=== PATIENT | female | born 1950 | race Two or more races ===

== ENCOUNTER 2023-10-11 16:08 | Outpatient (REF) | payer MEDICARE, MEDICAID, SELFPAY ==
[2023-10-11 18:22] LABS: Phenytoin Dilantin 13.2 ug/mL (10.0-20.0)
[2023-10-15 02:23] LABS: Levetiracetam Keppra 22.1 mcg/mL (6.0-46.0)
== END 2023-10-11 16:09 | disposition home or self-care (01) ==
LOC: HO.LAB 16:08
PROVIDERS: PCP Physician Assistant; Visit Provider Psychiatry & Neurology Neurology
DX: G40.909 Epilepsy, unspecified, not intractable, without status epilepticus (principal)
CPT/HCPCS: 36415; 80177; 80185

== ENCOUNTER 2024-06-18 15:28 | Outpatient (REF) | payer MEDICARE, MEDICAID, SELFPAY ==
[2024-06-18 16:44] LABS: Phenytoin Dilantin 13.4 ug/mL (10.0-20.0)
[2024-06-18 17:06] LABS: Thyroid Stimulating Hormone 0.93 uIU/mL (0.32-4.0)
--- OUTSIDE RECORDS SUMMARY | 2024-06-18 18:25 | XMS_ITS | Clinical Summary ---
Author Organization [facility] Address [address] [place] [address] Care Team Providers Care Classroom Instructional Aide Name Role Phone Meri Mondragon PA-C Primary Care Provider + [phone] Source Comments PLEASE NOTE, if this patient is a minor, it may be UNLAWFUL to discuss sensitive information that is contained in these records (such as FAMILY PLANNING, MENTAL HEALTH or SUBSTANCE ABUSE) with the minor patient's parent or other person without the patient's specific authorization.[facility] Allergies No known active allergies Medications spacerIndicatio ns:Wheeze Use prn for wheezing 786.07 with Mdi. 1 Inhaler 1 014 Active phenytoin (DILANTIN) 100 mg ER capsuleIndicati ons:tonic-cloni c epilepsy Take 100 mg by mouth 2 (two) times daily. Indications: Tonic-Clonic Epilepsy Active nebulizer accessoriesIndi cations:COPD, mild (HCC-CMS) Pt with COPD, Dx: J44.9 Lifetime need. Use every 6 hours as needed for SOB or wheeze. 1 Device 018 Active nebulizer accessoriesIndi cations:COPD, mild (HCC-CMS) Use to administer nebulizer medications. Dx: J44.9 LOS: 99 1 Device 019 Active nebulizer and compressorIndic ations:COPD, mild (HCC-CMS) Use to administer nebulizer medications. Dx: J44.9 LOS: 99 1 Each 019 Active blood pressure monitorIndicati ons:Essential hypertension Use to check blood pressure daily and as needed. Dx: I10 Meds: HCTZ, irbesartan Current BP monitor is malfunctioning; only shows one number. 1 Kit 020 Active miscellaneous medical supply miscIndications :Carpal tunnel syndrome of left wrist,Numbness and tingling in left hand Left hand/wrist splint. Wear nightly and throughout day as needed. Dx: G56.02 LOS: 11 1 Each 020 Active gabapentin (NEURONTIN) 300 mg capsule TAKE ONE CAPSULE BY MOUTH EVERY NIGHT AT BEDTIME DIRECTED . INCREASE BY 1 CAPSULE EVERY OTHER DAY UP TO 2 CAPSULES THREE TIMES DAILY D 021 Active albuterol (PROVENTIL) 2.5 mg /3 mL (0.083 %) nebulizer solutionIndicat ions:COPD, mild (HCC-CMS) Take 3 mL by nebulization every 6 (six) hours as needed for wheezing 90 Each 5 023 Active cholecalciferol (VITAMIN D-3) 50 mcg (2,000 unit) capsuleIndicati ons:Osteoporosi s without current pathological fracture, unspecified osteoporosis type Take 1 Capsule by mouth once daily 90 Capsule 1 023 Active albuterol HFA 90 mcg/actuation inhalerIndicati ons:Chronic obstructive pulmonary disease, unspecified COPD type (HCC-CMS) Inhale 2 Puffs into the lungs every 4 (four) hours as needed for shortness of breath or wheezing 18 g 3 024 Active irbesartan (AVAPRO) 300 mg tabletIndicatio ns:Essential hypertension TAKE 1 TABLET BY MOUTH EVERY NIGHT AT BEDTIME 90 Tablet 1 024 Active levETIRAcetam (KEPPRA) 1,000 mg tablet Take 1,000 mg by mouth 2 (two) times daily Authorized by: LAURA FAY 024 Active amLODIPine (NORVASC) 2.5 mg tabletIndicatio ns:Essential hypertension TAKE 1 TABLET BY MOUTH EVERY DAY 90 Tablet 1 024 Active chlorthalidone (HYGROTEN) 25 mg tabletIndicatio ns:Essential hypertension TAKE 1 TABLET BY MOUTH EVERY MORNING 90 Tablet 1 025 Active atorvastatin (LIPITOR) 10 mg tabletIndicatio ns:Dyslipidemia TAKE 1 TABLET BY MOUTH EVERY DAY 90 Tablet 025 Active fluticasone furoate-vilante roL (BREO ELLIPTA) 200-25 mcg/doseIndicat ions:Chronic obstructive pulmonary disease, unspecified COPD type (HCC-CMS) Inhale 1 Puff into the lungs daily 30 Each 3 025 Active calcium carbonate 600 mg calcium (1,500 mg) tabletIndicatio ns:Osteoporosis without current pathological fracture, unspecified osteoporosis type TAKE 1 TABLET BY MOUTH EVERY DAY 90 Tablet 1 025 Active montelukast (SINGULAIR) 10 mg tabletIndicatio ns:COPD, mild (HCC-CMS) TAKE 1 TABLET BY MOUTH EVERY NIGHT AT BEDTIME 90 Tablet 025 Active terbinafine (LAMISIL) 250 mg tabletIndicatio ns:Onychomycosi s Take 1 Tablet by mouth once daily 42 Tablet 025 Active calcium carbonate 600 mg calcium (1,500 mg) tabletIndicatio ns:Osteoporosis without current pathological fracture, unspecified osteoporosis type TAKE 1 TABLET BY MOUTH EVERY DAY 90 Tablet 1 024 2024 Discontinued fluticasone furoate-vilante roL (BREO ELLIPTA) 200-25 mcg/doseIndicat ions:Chronic obstructive pulmonary disease, unspecified COPD type (HCC-CMS) Inhale 1 Puff into the lungs daily. 30 Each 3 024 2024 Discontinued(R eorder (E-Cancel Not Sent)) montelukast (SINGULAIR) 10 mg tabletIndicatio ns:COPD, mild (HCC-CMS) TAKE 1 TABLET BY MOUTH EVERY NIGHT AT BEDTIME 90 Tablet 024 2024 Discontinued terbinafine (LAMISIL) 250 mg tabletIndicatio ns:Onychomycosi s Take 1 Tablet by mouth once daily 37 Tablet 025 2024 Discontinued(C ancelled) Hospital, Clinic, or Other Facility Administered Medication Ordered Dose Route Frequency Start Date End Date Status albuterol (PROVENTIL) 2.5 mg /3 mL (0.083 %) nebulizer solution 2.5 mgIndications:Wheezin g 2.5 mg nebu Every 6 hours PRN 06/14/2023 Active Active Problems Problem Noted Date Diagnosed Date Dysthymic disorder 10/16/2023 Post-menopausal bleeding 08/17/2023 Assessment & Plan (08/17/2023 11:34 AM EDT): - s/p EMB: consistent with endometrial polyp - Proceed with surgical management as above Adnexal mass 06/05/2023 Assessment & Plan (08/17/2023 11:34 AM EDT): - (p) Pre-operative clearance - Preop Diagnosis: Right ovarian mass, post menopausal bleeding, endometrial polyp - Planned procedure: laparoscopic right oophorectomy with bilateral salpingectomy,operative hysteroscopy with polypectomy and D&C - (x) Surgical Consent signed - (x) Booking request submitted - (x) Pre-op orders pending scheduling - Preop ABX: None indicated - Sx Prophylaxis: SCDs - NPO 12 hours prior to surgery - Post-op appt pending surgery date - Surgical scrubs given today - (x) Pre-op surgical packet - Post Operative Considerations: - Hospitalization: 0 night - Discussed pain management: Tylenol/Ibuprofen scheduled q 6hours and oxycodone q3-4h prn - Discussed bowel regimen with Miralax and docusate - Discussed lifting restrictions <10 lbs for: 6 weeks - Discussed bathing restriction (no tub baths, showers OK) until clear by doctor - Discussed return to normal activities in: 4-6 weeks - Discussed postoperative appointment in: 2 weeks - Discussed vaginal rest for: 6 weeks - Discussed driving restrictions All questions answered. Assessment & Plan (06/05/2023 5:20 PM EDT): - Pelvic MRI and Pelvic US reviewed: complex cystic RIGHT adnexal mass 3.7 x 3.3 x 3.3 - Post-menopausal MARK: Low risk - Normal CA-125 - Proceed with surgical management with right oophorectomy and risk reducing bilateral salpingectomy, laparoscopic approach - Pre-operative clearance ordered - Sx scheduled for August 17 - Follow-up for pre-operative visit Abnormal gait 08/06/2021 Vitamin D deficiency 05/17/2020 Closed fracture of left tibia 04/30/2020 Overview (04/30/2020): displaced spiral fracture of shaft Age-related osteoporosis wit hout current pathological fracture 05/28/2019 Bradycardia 11/15/2018 Prediabetes 04/27/2018 Overview (05/17/2020): 05/2020: referred to [facility] DM prevention program Pituitary adenoma ([facility]) 03/09/2017 Overview (03/09/2017): Pt is seen by [facility] Pt has an incongruous right hemianopsia Sees every 12 months Encephalopathy, unspecified 06/22/2016 Overview (06/22/2016): Followed by neuro Midline low back pain without sciatica 6 Overview (07/27/2015): Xray- mild Grade 1 3 mm anterior spondylolisthesis of L3/L4. facet joint disease of l4/l5 and L5/S1 disease. Hyperpigmentation 07/21/2014 Overview (10/10/2014): Melasma- 45 hydroquinone topical cream. ananda perez MD. Gastritis 08/14/2013 COPD, mild ([facility]) 08/14/2013 Assessment & Plan (08/17/2023 11:35 AM EDT): - No supplemental O2 - Controlled with inhalers - No chronic steroids - (p) Pre-op visit Monday with CXR and EKG Snoring 03/18/2013 Overview (05/17/2013): Sleep study- no sleep apnea,deviated septum of nose Recommend- madibular advancement device, pillar device. Mild cognitive impairment 10/22/2012 Essential hypertension 10/22/2012 Assessment & Plan (08/17/2023 11:36 AM EDT): - Controlled on medications; meds reviewed Screening for colon cancer 10/22/2012 Overview (04/16/2013): Colonoscopy on 03/21/2013 at [facility] [place]. Two sessile polyps are noted sigmoid colon, internal hemorrhoids Based on biopsy results 5 or 10 yrs. Seizure disorder ([facility]) 10/18/2012 Overview (04/30/2020): Seizures since infancy s/p forceps at . Also has headaches with sleep problems,needed ent referral per sleep study. -mri shows encephalomalacia of left parieto occipital area, cerebellar atrophy Fullness in pituatory fossa Unchanged from before 06/22/15- seen by [facility], seen by . referred to for epileptoform. Assessment & Plan (08/17/2023 11:35 AM EDT): - Currently controlled on medications Dyslipidemia 10/18/2012 Resolved Problems Problem Noted Date Diagnosed Date Resolved Date Body mass index (BMI) of 29.0-29.9 in adult 04/26/2018 05/02/[address] on lower extremity 05/16/2017 04/30/2020 Overview (05/16/2017): 05/16/17 -Pt is s/p L tib/fib ORIF from [address] She fell and broke her leg and went to [facility], and then rehab and [facility]. Shortness of breath 04/14/2017 04/30/19 21 Overview (04/14/2017): [facility] Imaging Department 04/13/2017 No radiographic evidence of active intrathoracic disease when compared to 11/10/2016 Encounter for removal of veena 04/29/2015 05/24/2017 Head injury with loss of con sciousness ([facility]) 04/28/2015 04/30/2020 Overview (04/28/2015): Pt is seen at [facility] on 04/15/15 for seizure and fall with 5 cm laceration over right aspect of the occiput. - pt had fall at home, with bleeding from head, loc and came to conscious in 2 mins. - pt had 3 sutures and 5 veena. meds- carbamazepine 200mg po 3 times a day,, Dilantin 100mg in am and 150mg at night vimpat 50mg po bid. 4 bradycardic-40/min Pruritus 07/21/2014 05/02/2019 Headache, cervicogenic 05/16/201405/02 Overview (05/16/2014): Advised on cervical stretching exercises. Wheezing-associated respiratory infection 08/15/2013 05/02/2019 Menopausal problem 10/22/2012 0 Ankle pain, left 10/18/2012 05/19/2015 hx of abnormal pap-08,rptin 2009-neg. 10/18/2012 04/30/2020 Breast screening, unspecified 10/18/2012 05/24/2017 Encounters Date Type Department Care Team Description 06/11/2024 1:40 PM EDT Office Visit [address] [address] Ashanti Kim FNP Onychomycosis (Primary Dx); At high risk for impaired function of liver 05/20/2024 11:20 AM EDT Office Visit [address] [address] Anthony Richmond, PharmD Chronic obstructive pulmonary disease, unspecified COPD type (HCC-CMS) (Primary Dx) from Last 3 Months Immunizations Immunization Administration Dates Next Due INFLUENZA, SEASONAL, INJECTABLE 02/09/2007 PNEUMOCOCCAL CONJUGATE PCV 13 04/30/2020 PNEUMOCOCCAL POLYSACCHARIDE PPV23 06/24/2021 TDAP 08/07/2015 Family History Medical History Relation Name Comments Heart Problems Brother 1 s/p major hea rt surgery Heart Problems Brother 2 s/p cardiac s tent Asthma Daughter 1 Hypertension Daughter 2 Other (See Comments) Daughter 2 [place] 's disease Cancer Father colon cancer COPD Mother Other (See Comments) Mother TB and stomach cancer Relation Name Status Comments Brother 1 Alive Brother 2 Alive Daughter 1 Alive Daughter 2 Alive Father Mother Other pulmonary Other Sister Alive Social History Tobacco Use Types Packs/Day Years Used Date Smoking Tobacco: Former Cigarettes Smokeless Tobacco: Never Tobacco Cessation:Counseling Given: Not Answered Alcohol Use Standard Drinks/Week Comments No 0 (1 standard drink = 0.6 oz pur e alcohol) Social Connections Answer Date Recorded Connectedness 1 05/20/2024 Financial Resource Strain Answer Date R ecorded Financial Resource Strain 1 2024 Stress Answer Date Recorded Stress 1 05/20/2024 Physical Activity Answer Date Recorded Physical Activity 0 10/31/2018 Food Insecurity Answer Date Recorded Food 1 05/20/2024 Transportation Needs Answer Date Record ed Transportation 1 05/20/2024 Housing Stability Answer Date Recorded Housing 1 05/20/2024 Safety and Environment Answer Date Ricky rded Safety 0 07/22/2021 Utilities Answer Date Recorded Utilities 1 05/20/2024 Employment Answer Date Recorded Stress 0 05/31/2021 Comments No Sex and Gender Information Value Date Recorded Sex Assigned at Female 02/14/2017 7:59 AM PST Legal Sex Female 11:36 AM PDT Gender Identity Female 02/14/2017 7:59 AM PST Sexual Orientation Straight 02/14/2017 7: 59 AM PST Occupation Industry Job Start Date Job End Date disability Not on file Not on file Not on file Last Filed Vital Signs Vital Sign Reading Time Taken Comments Blood Pressure 120/60 06/11/2024 1:36 PM EDT Pulse 60 06/11/2024 1:36 PM EDT Temperature 36.7 ??C (98 ??F) 06/11/2024 1:36 PM EDT Respiratory Rate 16 06/11/2024 1:36 PM EDT Oxygen Saturation 95% 06/11/2024 1:36 PM EDT Inhaled Oxygen Concentration - - Weight 72.3 kg (159 lb 8 oz) 06/11/2024 1:36 PM EDT Height 160 cm (5' 3 ) 06/11/2024 1:36 PM EDT Body Mass Index 28.25 06/11/2024 1:36 PM EDT Plan of Treatment Upcoming Encounters Date Type Department Care Team (Late st Contact Info) Description 07/10/2024 10:40 AM EDT Office Visit [facility] [address] [place] [phone] Meri Mondragon PA-C [address] [place] [address] 09/12/2024 10:20 AM EDT Office Visit [facility] [address] [place] [phone] Ellyn Estes [address] [place] [address] Health Maintenance Due Date Last Done Comments HPV Screening [address] CT Colonography 1997 FIT/gFOBT 1997 Fecal DNA 1997 Flexible Sigmoidoscopy 1997 Imm-Zoster, Recombinant (1 of 2) 2002 Colonoscopy 08/16/2022 02/15/2022 Colorectal Cancer Screening 08/16/2022 Breast Cancer Screening (Mammogram) 12/01/2023 11/30/2022, 10/20/2022, 10/15/2021, Additional history exists Falls Prevention 01/06/2024 01/05/2023, , 08/06/2021, Additional history exists [id number] ( season) 2024 12/03/2020, 11/12/2020 Postponed from 11/12/2023 (Patient postponement) Depression Monitoring 09/10/2024 06/11/2024 , 01/11/2024, 09/28/2023, Additional history exists Cervical Cancer Screening 10/17/2024 Pap + HPV 10/17/2024 08/30/2023 Lipid Screening 01/10/2025 01/11/2024, 12/12, 10/25/2021, Additional history exists Medicare Annual Wellness Visit 01/10/2025 01/11/2024, 09/28/2023, 08/15/2023, Additional history exists Dental BW 03/07/2025 03/05/2024, 10/0 07/2022, 06/09/2022, Additional history exists Dental Examination 03/07/2025 03/05/2024, 1 , 06/09/2022, Additional history exists Dental Perio Charting 03/07/2025 03/05/2024, 023 Dental Prophy 03/07/2025 03/05/2024, 10/0 07/2022, 06/09/2022, Additional history exists Tobacco Screening 06/11/2025 06/11/2024 Diabetes Screening 06/17/2025 06/17/2024, 1 , 08/15/2023, Additional history exists Imm-DTaP/Tdap/Td (2 - Td or Tdap) 08/06/2025 08/07/2015 Pap Smear 08/29/2026 08/30/2023, 10/18/2012 Dental FMX/Pano 06/12/2027 06/09/2022 Imm-Influenza Discontinued 02/09/2007 Bone Density Screening Completed 2018 Hepatitis C Screening Completed 05/09/2019 Imm-Pneumococcal 65+ Completed 06/24/2021, 04/30/19 21 Colposcopy Discontinued 10/18/2023 Excision/Leep Discontinued 10/18/2023 Alcohol and Drug Screen Completed 06/12/19, 01/11/2024, 09/28/2023, Additional history exists Cervical Ablation/Cold-Knife Conization Discontinued Cervical Cryotherapy Discontinued Endometrial Biopsy Discontinued HPV Genotyping Discontinued Vaginal Pap Discontinued Vulvoscopy Discontinued Procedures Procedure Name Priority Date/Time Associated Diagnosis Comments COMPREHENSIVE METABOLIC PANEL Routine 06/17/2024 3:13 PM EDT Onychomycosis At high risk for impaired function of liver COMP PERIODONTAL EVALUATION - NEW/EST PATIENT Routine 03/05/2024 10:20 AM EST Fracture of crown, enamel, and dentin of tooth without pulp exposure BITEWINGS - THREE RADIOGRAPHIC IMAGES Routine 03/05/2024 10:20 AM EST Fracture of crown, enamel, and dentin of tooth without pulp exposure PROPHYLAXIS - ADULT Routine 03/05/2024 1 0:20 AM EST Fracture of crown, enamel, and dentin of tooth without pulp exposure PERIODIC ORAL EVALUATION ESTABLISHED PATIENT Routine 03/05/2024 10:20 AM EST Fracture of crown, enamel, and dentin of tooth without pulp exposure LIPID PANEL Routine 01/11/2024 10:20 AM EDT Dyslipidemia BIOPSY CERVIX SINGLE/MULT/EXCISION OF LESION SPX Routine 10/18/2023 12:00 AM EDT THINPREP IMAGING PAP, HPV MRNA E6/E7 RFLEX HPV 16,18/45 CT/NG Routine 08/30/2023 11:11 AM EDT Cervical dysplasia REFERRAL FOR MAMMOGRAM Routine 3 3:00 AM EDT Breast cancer screening by mammogram INTRAORAL - COMP SERIES OF RADIOGRAPHIC IMAGES Routine 06/09/2022 10:20 AM EDT Encounter for dental examination REFERRAL FOR COLONOSCOPY Routine 02/15/2022 3:00 AM EST Screening for colorectal cancer HEPATITIS C ANTIBODY Routine 05/09/2019 9:50 AM EST Need for hepatitis C screening test from Last 3 Months or Most Recently Relevant to Health Maintenance Results * (ABNORMAL) COMPREHENSIVE METABOLIC PANEL (06/17/2024 3:13 PM EDT) GLUCOSE 92 65 - 139 mg/dL [facility] Comment: ?Non-fasting reference interval UREA NITROGEN (BUN) 16 7 - 25 mg/dL [facility] CREATININE (blood) 0.67 0.60 - 1.00 mg/dL [facility] EGFR 93 > OR = 60 mL/min/1. 73m2 [facility] BUN/CREATININE RATIO SEE NOTE: [facility] Comment: ?? Not Reported: BUN and Creatinine are within ?? reference range. ? SODIUM 140 135 - 146 mmol/L [facility] POTASSIUM 4.3 3.5 - 5.3 mmol/L [facility] CHLORIDE 101 98 - 110 mmol/L [facility] CARBON DIOXIDE 31 20 - 32 mmol/L [facility] CALCIUM 9.9 8.6 - 10.4 mg/dL [facility] PROTEIN, TOTAL 7.0 6.1 - 8.1 g/dL [facility] ALBUMIN 4.7 3.6 - 5.1 g/dL [facility] GLOBULIN 2.3 1.9 - 3.7 g/dL (calc) [facility] ALBUMIN/GLOBULI N RATIO 2.0 1.0 - 2.5 (calc) [facility] BILIRUBIN, TOTAL 0.3 0.2 - 1.2 mg/dL [facility] ALKALINE PHOSPHATASE 191(H) 37 - 153 U/L [facility] AST 20 10 - 35 U/L [facility] ALT 18 6 - 29 U/L [facility] Blood Blood / Unknown 06/17/2024 3 :13 PM EDT 06/17/2024 3:13 PM EDT Narrative [facility] - 06/18/2024 8:59 AM EDT FASTING:NO Ashanti Julio [facility] LAB - BLOOD DRAW Final Resul t [facility] [address] [address], [facility] [address] [place] [address] * LIPID PANEL (01/11/2024 10:20 AM EDT) [facility] Signature CHOLESTEROL, TOTAL 181 <200 mg/dL [facility] HDL CHOLESTEROL 65 > OR = 50 mg/dL [facility] TRIGLYCERIDES 85 <150 mg/dL [facility] LDL-CHOLESTEROL 98 99 mg/dL (calc) [facility] Comment: Reference range: <100 Desirable range <100 mg/dL for primary prevention; ?? <70 mg/dL for patients with CHD or diabetic patients with > or = 2 CHD risk factors. LDL-C is now calculated using the Ole-Deluca calculation, which is a validated novel method providing better accuracy than the Friedewald equation in the estimation of LDL-C. Ole SS et al. RAS. 2013;310(19): 5335-4847 (http://education.ClinicIQ/faq/LSZ510) CHOL/HDLC RATIO 2.8 <5.0 (calc) [facility] NON-HDL CHOLESTEROL 116 <130 mg/dL (calc) [facility] Comment: For patients with diabetes plus 1 major ASCVD risk factor, treating to a non-HDL-C goal of <100 mg/dL (LDL-C of <70 mg/dL) is considered a therapeutic option. Blood Blood / Unknown 01/11/2024 1 0:20 AM EDT 01/11/2024 10:20 AM EDT Narrative [facility] - 01/12/2024 4:21 AM EDT FASTING:NO Meri Mondragon PA-C LAB - BLOOD DRAW Final Resul t Performing Organization Address City/[facility]/ZIP Co de Phone Number [facility] [address] [address], [facility] [address] [address] * BIOPSY CERVIX SINGLE/MULT/EXCISION OF LESION SPX (10/18/2023 12:00 AM EDT) us Provider [facility] PROCEDURES Final Result Performing Organization Address [facility]/ZIP Co de Phone Number [facility] [address] [facility] [place] [address], * (ABNORMAL) THINPREP IMAGING PAP, HPV MRNA E6/E7 RFLEX HPV 16,18/45 CT/NG (08/30/2023 11:11 AM EDT) CHLAMYDIA TRACHOMATIS RNA, TMA NOT DETECTED NOT DETECTED [facility] NEISSERIA GONORRHOEAE RNA, TMA NOT DETECTED NOT DETECTED [facility] COMMENT [facility] CLINICAL INFORMATION See Note [facility] Comment:Routine exam LMP See Note [facility] Comment:NONE GIVEN PREV. PAP See Note [facility] Comment:NONE GIVEN PREV. BX See Note [facility] Comment:NONE GIVEN SOURCE See Note [facility] Comment:Cervix STATEMENT OF ADEQUACY See Note [facility] Comment: Satisfactory for evaluation. Endocervical/transformation zone component present. GENERAL CATEGORIZATION See Note(A) [facility] Comment:Cytology Results: Ep ithelial Cell Abnormality INTERPRETATION/RESU LT See Note(A) [facility] Comment: Atypical Squamous Cells of Undetermined Significance (ASC-US) COMMENT See Note [facility] Comment: This Pap test has been evaluated with computer assisted technology. SENIOR TECHNICAL BUSINESS ANALYST See Note [facility] Comment: EXJ, CT(ASCP) CT Screening Location: [address] [address] PATHOLOGIST See Note [facility] Comment: Gavin Green M.D., Board Certified in Anatomic and Clinical Pathology (electronic signature) Consulting Pathologist [facility] [address] [place] [address] ??[id number] COMMENT [facility] HPV MRNA E6/E7 Detected(A ) Not Detected [facility] Comment: Methodology: Service Support Representative-Mediated Amplification This assay detects E6/E7 viral messenger RNA (mRNA) from 14 high-risk HPV types (16,18,31,33,35,39,45,51,52,56,58,59,66,68). Cervical sources are required for HPV testing. If a vaginal source from a patient who has had a total hysterectomy with removal of cervix was submitted, please contact the testing laboratory for alternative testing options. For additional information, please refer to http://ClearTax.Bioceptive/faq/VIU125d1 (This link if provided for information/ educational purposes only.) Swab Cervix uteri structure / Unknown 08/30/2023 11:11 AM EDT 08/31/2023 5:20 AM EDT Narrative [facility] - 09/04/2023 1:22 PM EDT EXPLANATORY NOTE: The Pap is a screening test for cervical cancer. It is not a diagnostic test and is subject to false negative and false positive results. It is most reliable when a satisfactory sample, regularly obtained, is submitted with relevant clinical findings and history, and when the Pap result is evaluated along with historic and current clinical information. The analytical performance characteristics of this assay, when used to test SurePath(TM) specimens have been determined by [facility]. The modifications have not been cleared or approved by the FDA. This assay has been validated pursuant to the CLIA regulations and is used for clinical purposes. For additional information, please refer to https://ClearTax.Bioceptive/faq/GVT780 (This link is being provided for information/ educational purposes only.) Ngoc Aguirre DO LAB - NO BLOOD DRAW Final Resu lt [facility] [address] [address], [facility] [address] [address] * REFERRAL FOR MAMMOGRAM (10/20/2022 3:00 AM EDT) 10/20/2022 3:00 AM EDT Meri Mondragon PA-C IMG RFL MAMMO Edited Resul t - Final * (ABNORMAL) REFERRAL FOR COLONOSCOPY (02/15/2022 3:00 AM EST) 02/15/2022 3:00 AM EST Meri Mondragon PA-C REFERRAL Edited Resul t - Final * HEPATITIS C ANTIBODY (05/09/2019 9:50 AM EST) HEPATITIS C VIRUS SCREEN NEGATIVE NEGATIVE [facility] Blood specimen (specimen) Blood / Unknown 05/09/2019 9:50 AM EST 05/09/2019 10:18 AM EST Narrative [facility] - 05/09/2019 1:09 PM EST [place] [address] Line Construction Superintendent - Nikki Mojica MD [place] [id number] ORD# [id number] [facility] - BLOOD DRAW Final Result Performing Organization Address City/State/[facility] Co de Phone Number [address] [address], from Last 3 Months or Most Recently Relevant to Health Maintenance [place] Care Teams Classroom Instructional Aide Relationship Specialty Start Date End Date Meri Mondragon PA-C [address] [place] [address] PCP - General [facility]IC[facility] 08/06/21
--- OUTSIDE RECORDS SUMMARY | 2024-06-18 18:26 | XMS_ITS | Clinical Summary ---
Author Organization [facility] Address [address] [place] [address] Care Team Providers Care Furnace Setter Name Role Phone Alexandria Rubio Primary Care Provider [phone] Surgical History Surgery Date Site/Laterality Comments CARDIOVASCULAR STRESS TEST 04/18 PROCEDURE: NM CV STRS TST XERS&/OR RX CONT ECG W/O I&R; COMMENT: neg OTHER SURGICAL HISTORY 03/19 PROCEDURE: SCREENING MAMMOGRAPHY BILATERAL; COMMENT: neg COLONOSCOPY 07/13 PROCEDURE: HISTORICAL COLONOSCOPY; COMMENT: [place]; neg; rpt 10 yr OTHER SURGICAL HISTORY 10/17 PROCEDURE: PAP SMEAR (1 SLIDE); COMMENT: ; Atypia OTHER SURGICAL HISTORY PROCEDURE: NM LIG/TRNSXJ FLP TUBE ABDL/VAG APPR UNI/BI Medical History Medical History Date Comments Personal history of tobacco use, presenting hazards to health 03/17/2006 DX:Personal history of to bacco use, presenting hazards to health Tuberculin test reaction 03/17/2006 DX:Tube rculin test reaction Other convulsions 05/20/2005 DX:Other convu lsions Myofascial pain 10/31/2010 DX:Myofascial pa in Family History Medical History Relation Name Comments Colon cancer Father Relation Name Status Comments Father Social History Tobacco Use Types Packs/Day Years Used Date Smoking Tobacco: Every Day Cigarettes Alcohol Use Standard Drinks/Week Comments No 0 (1 standard drink = 0.6 oz pur e alcohol) Comments Unknown Sex and Gender Information Value Date Recorded Sex Assigned at Not on file Legal Sex Female 10:09 AM EST Gender Identity Not on file Sexual Orientation Not on file Obstetrics History Plan of Treatment Health Maintenance Due Date Last Done Comments DTaP,Tdap,and Td Vaccines (1 - Tdap) 11/27/1971 Pneumococcal Vaccine: 50+ Years (1 of 2 - PCV) 11/27/1971 Zoster Vaccines (1 of 2) 2002 Cholesterol Screening (Lipid Panel) 02/15/2022 Colorectal Cancer Screening: Colonoscopy 02/15/2022 Depression Screening 02/15/2022 Falls Risk Assessment 02/15/2022 Hepatitis C Screening 02/15/2022 Osteoporosis Screening (Bone Density Screening) 02/15/2022 Social Influencers of Health Screening 02/15/2022 COVID-19 Vaccine (1 - 2023-2 5 season) 2023 Breast Cancer Screening 10/20/2024 10/21/19, 09/03/2020 Influenza Vaccine (Season Ended) 2024 02/09/2007 RSV Immunization Adult Patients (1 - 1-dose 75+ series) 11/27/2027 HIB Vaccines Aged Out No longer eligi ble based on patient's age to complete this topic HPV Vaccines Aged Out No longer eligi ble based on patient's age to complete this topic Hepatitis A Vaccines Aged Out No long er eligible based on patient's age to complete this topic Hepatitis B Vaccines Aged Out No long er eligible based on patient's age to complete this topic IPV Vaccines Aged Out No longer eligi ble based on patient's age to complete this topic MMR Vaccines Aged Out No longer eligi ble based on patient's age to complete this topic Meningococcal ACWY Vaccine Aged Out N o longer eligible based on patient's age to complete this topic Meningococcal B Vaccine Aged Out No l onger eligible based on patient's age to complete this topic RSV Immunization Patients Under 20 months Aged Out No longer eligible b ased on patient's age to complete this topic Varicella Vaccines Aged Out No longer eligible based on patient's age to complete this topic Procedures Procedure Name Priority Date/Time Associated Diagnosis Comments [facility] SCREENING DIGITAL Routine 10/20/2022 4:44 PM EDT Encounter for screening mammogram for malignant neoplasm of breast from Last 3 Months or Most Recently Relevant to Health Maintenance Results * [facility] SCREENING DIGITAL (10/20/2022 4:44 PM EDT) Anatomical Region Laterality Modality Mammography 10/20/2022 1:19 PM EDT Narrative 10/20/2022 4:[address] [facility] Diagnostic Imaging Department [address] [place] [address] Patient: ??MICKEY,KALA I ?/Age/Sex: 1950 - 71 - F Unit#: ??[id number] ? Location/Status: ??SPDIMAM/REG CLI ? Mnemonic/Ordering Site: ??DIGSC/SPMAM Ordering Physician: ??MERI MONCADA [facility] Screening Digital - 10/20/22 - 8422 Report Status:Signed EXAM: [facility] Screening Digital EXAM DATE AND TIME: 10/20/2022 1:53 PM HISTORY: ??Screening. COMPARISON: ??09/16/21, 03/18/21, 09/03/20, 06/11/10 TECHNIQUE: Bilateral digital breast tomosynthesis was performed in the CC and MLO projections. Computer aided detection with [employer] 3D 3.1 was employed. TISSUE DENSITY: b. There are scattered areas of fibroglandular density. FINDINGS: No suspicious masses, grouped microcalcifications, or areas of architectural distortion are seen. The skin and vascularity are unremarkable. IMPRESSION: Stable mammographic appearance of the breasts. ??No evidence of malignancy is seen. A negative mammogram in the presence of a clinically suspicious palpable abnormality does not preclude the possibility of malignancy or alter the indications for biopsy. BI-RADS: ??Category 1: Negative RECOMMENDATION(S): 1: Routine screening mammogram BILATERAL in 1 year. Dictating Physician: ??FRANK PAYNE MD Electronically Signed by: ??FRANK APYNE MD Dic Date/Time: ??10/20/221642 Sign date/Time: ??10/20/221643 Procedure Note Frank Payne MD - 04/18/2023 [facility] Diagnostic Imaging Department [address] [place] [address] Patient: MICKEYKALA I /Age/Sex: 1950 - 71 - F Unit#: [id number] Location/Status: [facility] CLI Mnemonic/Ordering Site: [facility] Ordering Physician: MERI MONCADA [facility] Screening Digital - 10/20/22 - 1352 Report Status:Signed EXAM: [facility] Screening Digital EXAM DATE AND TIME: 10/20/2022 1:53 PM HISTORY: Screening. COMPARISON: 09/16/21, 03/18/21, 09/03/20, 06/11/10 TECHNIQUE: Bilateral digital breast tomosynthesis was performed in the CCand MLO projections. Computer aided detection with [employer] 3D 3.1was employed. TISSUE DENSITY: b. There are scattered areas of fibroglandular density. FINDINGS: No suspicious masses, grouped microcalcifications, or areas ofarchitectural distortion are seen. The skin and vascularity are unremarkable. IMPRESSION: Stable mammographic appearance of the breasts. No evidence of malignancyis seen. A negative mammogram in the presence of a clinically suspicious palpable abnormality does not preclude the possibility of malignancy or alter the indications for biopsy. BI-RADS: Category 1: Negative RECOMMENDATION(S): 1: Routine screening mammogram BILATERAL in 1 year. Dictating Physician: FRANK PAYNE MD Electronically Signed by: FRANK PAYNE MD Dic Date/Time: 10/20/22 1643 Sign date/Time: 10/20/22 1644 Meri ROONEY IMG BI PROCEDURES Final Result from Last 3 Months or Most Recently Relevant to Health Maintenance Care Teams Furnace Setter Relationship Specialty Start Date End Date Alexandria Rubio PA [address] [place] [address] PCP - General 03/21/23
[2024-06-20 23:58] LABS: Levetiracetam Keppra 44.8 mcg/mL (6.0-46.0)
== END 2024-06-18 15:29 | disposition home or self-care (01) ==
LOC: HO.LAB 15:28
PROVIDERS: PCP Physician Assistant; Visit Provider Psychiatry & Neurology Neurology
DX: G40.909 Epilepsy, unspecified, not intractable, without status epilepticus (principal)
CPT/HCPCS: 36415; 80177; 80185; 84443

== ENCOUNTER 2024-12-25 10:22 | Outpatient (AMB) | payer MEDICARE, MEDICAID, SELFPAY ==
--- NOTE | 2024-12-25 10:27 | A.OFFVIS_ITS ---
Intake Visit Reasons: 6m HPI Comments Details: 74 yr woman with Sz disorder. She brings in record of her falls and seizures for 2024. She had 3 episodes in March where she fell and has no recall of the fall itself. She woke up on the floor. She may be out for a minute. She had another episode on July 16, September 30 in the last episode on 11/16/2024. No injuries were sustained. No convulsions were noted. There was no tongue biting or incontinence. She takes her 3 seizure medications faithfully. She did not start the Depakote or Carbamazepine.? Also while sitting down. In the past she was treated for epilepsy along with her daughter. 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 She's been treated in [place] and in [facility] by Dr. Galan and Dr. Harmon and is currently on Dilantin, brand name 100 mg 3 times a day and levetiracetam 1000 mg 2 tablets twice a day and Gabapentin 600mg tid.has been on this for a few years. Up until recently she had been on Carbamazepine as well. Her seizures have never been completely controlled. Some of the seizures are just partial where she stares and is blank and at other times she suddenly keeled over and falls down. No convulsions were reported. She doesn't bite her tongue or lose control of her bladder. Most of these episodes would last a minute or so and it takes her a few minutes to get back to normal mentation. On one occasion it may have been triggered by flashing lights, but there are no other triggers. 2 years ago. They were occurring almost every week. Her last episode was Nov 16, 2024. MRIs in the past have been unremarkable except for a pituitary adenoma. Report of the EEG is not available, except there is a 24-hour EEG that showed some diffuse slowing. She's had multiple falls and has pain in the left shoulder as a result and is starting physical therapy for this. ?She is more sleepy recently . She also snores a lot at night. She had a Polysom about 1-2 yrs ago. Feels off balance when she closes her eyes. Review of Systems Const Details: ?Sleep:? Difficulty getting to sleepdenies.? Difficulty maintaining sleepdenies?.? Urge to move legsdenies.? Teeth grindingdenies.? Shouting or Kicking during sleep denies.? Abnormal behavior during sleepdenies.? Excessive sleepdenies.? Snoring denies.? Daytime sleepinessdenies. ???General/Constitutional:? Change in appetitedenies.? Chillsdenies.? Fatiguedenies.? Feverdenies.? Weight gaindenies.? Weight lossdenies. ???Ophthalmologic:? Blurred visiondenies.? Diminished visual acuitydenies. ???ENT:? Stuffinessdenies.? Decreased hearingdenies.? Dry mouthdenies.? Ear paindenies.? Nosebleeddenies.? Ringing in the earsdenies.? Sinus paindenies.? Sore throat denies.? Swollen glandsdenies. ???Endocrine:? Cold intolerancedenies.? Excessive thirstdenies.? Frequent urinationdenies.? Heat intolerancedenies. ???Respiratory:? Shortness of breathdenies.? Chest paindenies.? Coughdenies. ???Breast:? Breast lumpdenies.? Nipple dischargedenies. ???Cardiovascular:? Chest pain at restdenies.? Chest pain with exertiondenies.? Claudicationdenies .? Dizzinessdenies.? Fluid accumulation in the legsdenies.? Irregular heartbeat denies.? Palpitationsdenies. ???Gastrointestinal:? Abdominal paindenies.? Constipationdenies.? Diarrheadenies.? Difficulty swallowingdenies.? Heartburndenies.? Nauseadenies.? Rectal bleedingdenies. ???Hematology:? Easy bruisingdenies.? Prolonged bleedingdenies. ???Genitourinary:? Frequent urinationdenies.? Urgencydenies.? Incontinencedenies.? Erectile Dysfunctiondenies. ???Musculoskeletal:? Neck paindenies.? Back paindenies.? Muscle achesdenies.? Painful jointsdenies.? Sciaticadenies.? Weaknessdenies. ???Podiatric:? Difficulty walkingdenies.? Foot numbnessdenies. ???Neurologic:? Difficulty swallowingdenies.? Balance difficultydenies.? Coordinationnormal.? Difficulty speakingdenies.? Dizzinessdenies.? Faintingdenies.? Gait abnormality denies.? Headachedenies.? Loss of strengthdenies.? Loss of use of extremity denies.? Low back paindenies.? Memory lossdenies.? Seizuresadmits.? Ticsdenies.? Tingling/Numbnessdenies.? Transient loss of visiondenies.? Tremordenies. ???Psychiatric:? Anxietydenies.? Auditory/visual hallucinationsdenies.? Delusionsdenies.? Depressed mooddenies.? Stressorsdenies.? Substance abusedenies.? Suicidal thoughtsdenies. Physical Exam Neuro Other: Neurological: Abnormal neurological findings:??none.?Mental Status:??alert and oriented X 3,?Normal attention, orientation, memory and affect.?Cranial Nerves:??Pupils are equal, round and reactive to light. Fundoscopy shows normal disc bilaterally. External occular muscles are intact. Visual hardy are full, no ptosis. Face is symmetrical, no facial weakness or droop. Facial sensations are normal. Tongue protrudes in midline. Palate elevates symmetrically. Shoulder shrugging is normal..?Motor Examination:??Normal muscle tone, bulk and strength,?No atrophy or fasciculations,?No drift of the extended upper extremities,?Deep tendon reflexes are 2+?,?Plantars are flexor?.?Straight Leg Raising:??90 degrees.?Sensory Exam:??Normal light touch, temperature, pinprick, vibration and joint-position sensations?,?Rhomberg sign is absent.?Coordination:??no ataxia,?no titubation,?ajlort-eb-nxxt, ggwo-zbko-hbdy test and rapid alternating movements were normal.?Gait Exam:??Within normal limits.?Cerebellar Signs:??Zabrle-yl-gmqk and resj-dt-nyod is normal,?no dysdiadochokinesia?.?Extrapyramidal System:??No tremor, rigidity with normal facial expressions,?No bradykinesia, no bradyphrenia. Normal arm swing and posture. No propulsion or retropulsion.?Speech:??Normal,?no dysphasia or dysarthria..? Mini Mental Status Exam: Level of Consciousness:??Alert.?Orientation:??Knows correct year, month, date, day and season,?Knows correct city, county and state. Knows correct location and floor.?Registration:??Able to register 3 objects.?Attention:??Serial 7's performed accurately.?Recall:??Able to recall 3 out of 3 objects.?Language:??Normal spontaneous speech, fluency, repetition,naming, comprehension, reading and writing.?Total Score:??30/30.? General Examination: GENERAL APPEARANCE:??normal,?in no acute distress.?HEAD:??normocephalic,?atraumatic.?EYES:??sclera non- icteric,?conjunctiva clear.?EARS:??auditory canal clear,?tympanic membrane intact, clear.?NOSE:??no lesions.?ORAL CAVITY:??gums normal,?mucosa moist,?no lesions.?THROAT:??clear.?NECK/THYROID:??no cervical lymphadenopathy,?thyroid normal,?neck supple, full range of motion,?no carotid bruit.?SKIN:??no rashes,?no significant birthmarks.?HEART:??S1, S2 normal,?no murmurs.?LUNGS:??clear anteriorly and posteriorly.?CHEST:??no gross rib deformity,?clear to auscultation.?BACK:??normal exam of spine.?EXTREMITIES:??no edema.?PERIPHERAL PULSES:??normal.?PSYCH:??alert, oriented,?cognitive function intact,?cooperative with exam.? Assessment & Plan Assessment & Plan (1) Epilepsy: Comment: 48 hour ambulatory EEG on 12/19/2023: Probably within normal limits. Two isolated sharp transient and sharp and slow discharges were seen from the right frontal and left temporal region of questionable significance. Code(s): G40.909 - Epilepsy, unspecified, not intractable, without status epilepticus Category: Medical (2) DORYS (obstructive sleep apnea): Code(s): G47.33 - Obstructive sleep apnea (adult) (pediatric) Category: Medical Plan check drug levels. 48 hr EEG Orders: Orders EEG 48hr Ambulatory 2 Months G40.909 - Epilepsy, unspecified, not intractable, without status epilepticus Phenytoin Dilantin Today G40.909 - Epilepsy, unspecified, not intractable, without status epilepticus Levetiracetam Keppra Today G40.909 - Epilepsy, unspecified, not intractable, without status epilepticus Coding Level of Care Code Est Pt Level 4 (08846) Diagnoses Epilepsy G40.909 DORYS (obstructive sleep apnea) G47.33
--- OUTSIDE RECORDS SUMMARY | 2024-12-25 12:15 | XMS_ITS | Clinical Summary ---
Author Organization [facility] Address [address] [place] [address] Care Team Providers Care Mud Boss Name Role Phone Alexandria Rubio Primary Care Provider [phone] Surgical History Surgery Date Site/Laterality Comments CARDIOVASCULAR STRESS TEST 04/18 PROCEDURE: MN CV STRS TST XERS&/OR RX CONT ECG W/O I&R; COMMENT: neg OTHER SURGICAL HISTORY 03/19 PROCEDURE: SCREENING MAMMOGRAPHY BILATERAL; COMMENT: neg COLONOSCOPY 07/13 PROCEDURE: HISTORICAL COLONOSCOPY; COMMENT: [place]; neg; rpt 10 yr OTHER SURGICAL HISTORY 10/17 PROCEDURE: PAP SMEAR (1 SLIDE); COMMENT: ; Atypia OTHER SURGICAL HISTORY PROCEDURE: [place] LIG/TRNSXJ FLP TUBE ABDL/VAG APPR UNI/BI Medical [...] Health Maintenance Due Date Last Done Comments Colorectal Cancer Screening: Colonoscopy 1950 RSV Immunization Adult Patients (1 - Risk 50-74 years 1-dose series) 2002 Zoster Vaccines (1 of 2) 2002 Falls Risk Assessment 02/15/2022 Osteoporosis Screening (Bone Density Screening) 02/15/2022 Social Influencers of Health Screening 02/15/2022 Depression Screening 03/13/2024 Breast Cancer Screening 10/20/2024 10/20/2022, 09/03 COVID-19 Vaccine ( - season) 2024 Influenza Vaccine (#1) 2024 02/09/2007 Hypertension/CHF/CAD Annual BMP Blood Test 06/17/2025 06/17/2024 DTaP,Tdap,and Td Vaccines (2 - Td or Tdap) 08/06/2025 08/07/2015 Cholesterol Screening (Lipid Panel) 01/10/2029 01/11/2024, 01/11/2024, 01/05/2023, Additional history exists Hepatitis C Screening Completed 05/09/2019, 020 Pneumococcal Vaccine: 50+ Years Completed 06/24/2021, 04/30/2020 HIB Vaccines Aged Out No longer eligi [...] 20 months Aged Out No longer eligible based on patient's age to complete this topic Varicella Vaccines Aged Out No longer eligible based on patient's age to complete this topic Procedures Procedure Name Priority Date/Time Associated Diagnosis Comments [facility] SCREENING DIGITAL Routine 10/20/2022 4:44 PM EDT Encounter for screening mammogram for malignant neoplasm of breast from Last 3 Months or Most Recently Relevant to Health Maintenance Results * [facility] SCREENING DIGITAL (10/20/2022 4:44 PM EDT) Anatomical Region Laterality Modality Mammography 10/20/2022 1:19 PM EDT Narrative 10/20/2022 4:44 PM EDT [facility] Diagnostic Imaging Department [address] [place] [address] Patient: KALA AREVALO I /Age/Sex: 1950 - 71 - F Unit#: [id number] Location/Status: [facility] CLI Mnemonic/Ordering Site: [facility] Ordering Physician: MERI MONCADA [facility] Screening Digital - 10/20/22 - 1352 Report Status:Signed EXAM: [facility] Screening Digital EXAM DATE AND TIME: 10/20/2022 1:53 PM HISTORY: Screening. COMPARISON: 09/16/21, 03/18/21, 09/03/20, 06/11/10 TECHNIQUE: Bilateral digital breast tomosynthesis was performed in the CC and MLO projections. Computer aided detection with [employer] 3D 3.1 was employed. TISSUE DENSITY: b. There are scattered areas of fibroglandular density. FINDINGS: No suspicious masses, grouped microcalcifications, or areas of architectural distortion are seen. The skin and vascularity are unremarkable. IMPRESSION: Stable mammographic appearance of the breasts. No evidence of malignancy is seen. A negative mammogram in the presence of a clinically suspicious palpable abnormality does not preclude the possibility of malignancy or alter the indications for biopsy. BI-RADS: Category 1: Negative RECOMMENDATION(S): 1: Routine screening mammogram BILATERAL in 1 year. Dictating Physician: JANETH PAYNE MD Electronically Signed by: JANETH PAYNE MD Dic Date/Time: 10/20/221642 Sign date/Time: 10/20/221643 Procedure Note Janeth Payne MD - 04/18/2023 [facility] Diagnostic Imaging Department [address] [place] [address] Patient: KALA AREVALO I /Age/Sex: 1950 - 71 - F Unit#: [id number] Location/Status: [facility] CLI Mnemonic/Ordering Site: [facility] Ordering Physician: MERI MONCADA [facility] Screening Digital - 10/20/22 - 1352 Report Status:Signed EXAM: [facility] Screening Digital EXAM DATE AND TIME: 10/20/2022 1:53 PM HISTORY: Screening. COMPARISON: 09/16/21, 03/18/21, 09/03/20, 06/11/10 TECHNIQUE: Bilateral digital breast tomosynthesis was performed in the CCand MLO projections. Computer aided detection with [employer] 3D 3.1was employed. TISSUE DENSITY: b. There [...] mammogram BILATERAL in 1 year. Dictating Physician: JANETH PAYNE MD Electronically Signed by: JANETH PAYNE MD Dic Date/Time: 10/20/22 1643 Sign date/Time: 10/20/22 1644 Meri ROONEY IMG BI PROCEDURES Final Result from Last 3 Months or Most Recently Relevant to Health Maintenance Care Teams Mud Boss Relationship Specialty Start Date End Date Alexandria Rubio PA [address] [place] [address] PCP - General 03/21/23
== END 2024-12-25 11:07 | disposition home or self-care (01) ==
LOC: HO.HSM 10:22
PROVIDERS: PCP Physician Assistant; Referring Provider Physician Assistant; Visit Provider Psychiatry & Neurology Neurology
DX: G40.909 Epilepsy, unspecified, not intractable, without status epilepticus (principal); G47.33 Obstructive sleep apnea (adult) (pediatric)
CPT/HCPCS: 99214

== ENCOUNTER 2024-12-25 10:22 | Outpatient (REF) | payer MEDICARE, MEDICAID, SELFPAY ==
--- OUTSIDE RECORDS SUMMARY | 2024-12-25 14:05 | XMS_ITS | Clinical Summary ---
Author Organization [facility] Address [address] [place] [address] Care Team Providers Care Medical Technologist Prn Name Role Phone Meri Mondragon PA-C Primary Care Provider + [phone] Source Comments PLEASE NOTE, if this patient [...] wheezing 786.07 with Mdi. 1 Inhaler 1 07/27/19 14 Active phenytoin (DILANTIN) 100 mg ER capsuleIndicati ons:tonic-cloni c epilepsy Take 100 mg by mouth 2 (two) times daily. Indications: Tonic-Clonic Epilepsy Active nebulizer accessoriesIndi cations:COPD, mild Pt with COPD, Dx: J44.9 Lifetime need. Use every 6 hours as needed for SOB or wheeze. 1 Device 05/17/19 18 Active nebulizer accessoriesIndi cations:COPD, mild Use to administer nebulizer medications. Dx: J44.9 LOS: 99 1 Device 01/18/20 19 Active nebulizer and compressorIndic ations:COPD, mild Use to administer nebulizer medications. Dx: J44.9 LOS: 99 1 Each 01/18/20 19 Active blood pressure monitorIndicati ons:Essential hypertension Use to check blood pressure daily and as needed. Dx: I10 Meds: HCTZ, irbesartan Current BP monitor is malfunctioning; only shows one number. 1 Kit 08/07/19 20 Active miscellaneous medical supply miscIndications :Carpal tunnel syndrome of left wrist,Numbness and tingling in left hand Left hand/wrist splint. Wear nightly and throughout day as needed. Dx: G56.02 LOS: 11 1 Each 10/29/19 20 Active gabapentin (NEURONTIN) 300 mg capsule TAKE ONE CAPSULE BY MOUTH EVERY NIGHT AT BEDTIME DIRECTED . INCREASE BY 1 CAPSULE EVERY OTHER DAY UP TO 2 CAPSULES THREE TIMES DAILY D 07/17/19 21 Active albuterol (PROVENTIL) 2.5 mg /3 mL (0.083 %) nebulizer solutionIndicat ions:COPD, mild Take 3 mL by nebulization every 6 (six) hours as needed for wheezing 90 Each 5 01/06/20 23 Active cholecalciferol (VITAMIN D-3) 50 mcg (2,000 unit) capsuleIndicati ons:Osteoporosi s without current pathological fracture, unspecified osteoporosis type Take 1 Capsule by mouth once daily 90 Capsule 1 02/17/20 23 Active levETIRAcetam (KEPPRA) 1,000 mg tablet Take 1,000 mg by mouth 2 (two) times daily Authorized by: LAURA FAY 01/10/20 24 Active irbesartan (AVAPRO) 300 mg tabletIndicatio ns:Essential hypertension Take 1 Tablet by mouth nightly at bedtime 90 Tablet 1 07/16/19 25 Active calcium carbonate 600 mg calcium (1,500 mg) tabletIndicatio ns:Osteoporosis without current pathological fracture, unspecified osteoporosis type Take 1 Tablet by mouth once daily. 90 Tablet 1 08/31/19 25 Active fluticasone furoate-vilante roL (BREO ELLIPTA) 200-25 mcg/doseIndicat ions:Chronic obstructive pulmonary disease, unspecified COPD type Inhale 1 Puff into the lungs daily. 30 Each 3 09/13/19 25 Active albuterol HFA 90 mcg/actuation inhalerIndicati ons:Chronic obstructive pulmonary disease, unspecified COPD type Inhale 2 Puffs into the lungs every 4 (four) hours as needed for shortness of breath or wheezing. 18 g 3 09/13/19 25 Active chlorthalidone (HYGROTEN) 25 mg tabletIndicatio ns:Essential hypertension TAKE 1 TABLET BY MOUTH EVERY MORNING 90 Tablet 1 10/15/19 25 Active atorvastatin (LIPITOR) 10 mg tabletIndicatio ns:Dyslipidemia TAKE 1 TABLET BY MOUTH EVERY DAY 90 Tablet 10/22/19 25 Active amLODIPine (NORVASC) 2.5 mg tabletIndicatio ns:Essential hypertension TAKE 1 TABLET BY MOUTH EVERY DAY 90 Tablet 1 11/21/19 25 Active terbinafine (LAMISIL) 250 mg tabletIndicatio ns:Onychomycosi s Take 1 Tablet by mouth once daily. 21 Tablet 11/22/19 25 Active montelukast (SINGULAIR) 10 mg tabletIndicatio ns:COPD, mild TAKE 1 TABLET BY MOUTH EVERY NIGHT AT BEDTIME 90 Tablet 12/17/19 25 Active montelukast (SINGULAIR) 10 mg tabletIndicatio ns:COPD, mild TAKE 1 TABLET BY MOUTH EVERY NIGHT AT BEDTIME 90 Tablet 09/07/19 25 2024 Discontinued Hospital, Clinic, or Other Facility Administered Medication [...] Prediabetes 04/27/2018 Overview (05/17/2020): 05/2020: referred to [place] DM prevention program Pituitary adenoma 03/09/2017 Overview (03/09/2017): Pt is seen by [facility] Pt has an incongruous right hemianopsia Sees every 12 months Encephalopathy, unspecified 06/22/2016 Overview (06/22/2016): Followed by neuro Midline low back pain without sciatica 6 Overview (07/27/2015): Xray- mild Grade 1 3 mm anterior spondylolisthesis of L3/L4. facet joint disease of l4/l5 and L5/S1 disease. Hyperpigmentation 07/21/2014 Overview (10/10/2014): Melasma- 45 hydroquinone topical cream. ananda perez MD. Gastritis 08/14/2013 COPD, mild 08/14/2013 Assessment & Plan (08/17/2023 11:35 AM [...] 10/22/2012 Overview (04/16/2013): Colonoscopy on 03/21/2013 at [facility]. Two sessile polyps are noted sigmoid colon, internal hemorrhoids Based on biopsy results 5 or 10 yrs. Seizure disorder 10/18/2012 Overview (04/30/2020): Seizures since infancy s/p forceps at . Also has headaches with sleep problems,needed ent referral per sleep study. -mri shows encephalomalacia of left parieto occipital area, cerebellar atrophy Fullness in pituatory fossa Unchanged from before 06/22/15- seen by [facility], seen by . referred to for epileptoform. Assessment & Plan (08/17/2023 11:35 AM EDT): - Currently controlled on medications Dyslipidemia 10/18/2012 Resolved Problems Problem Noted Date Diagnosed Date Resolved Date Body mass index (BMI) of 29.0-29.9 in adult 04/26/2018 05/02/[address] on lower extremity 05/16/2017 04/30/2020 Overview (05/16/2017): 05/16/17 -Pt is s/p L tib[place]fib [address] [place] She fell and broke her leg and [facility] to [facility], [facility] Shortness of breath 04/14/2017 04/30/19 21 Overview (04/14/2017): [facility] Diagnostic Imaging Department 04/13/2017 No radiographic evidence of active intrathoracic disease when compared to 11/10/2016 Encounter for removal of veena 04/29/2015 05/24/2017 Head injury with loss of con sciousness ([facility]) 04/28/2015 04/30/2020 Overview (04/28/2015): [facility] on 04/15/15 for seizure and fall [...] left 10/18/2012 05/19/2015 hx of abnormal pap-08,rptin 2010-neg. 10/18/2012 04/30/2020 Breast screening, unspecified 10/18/2012 05/24/2017 Encounters Date Type Department Care Team Description 12/19/2024 2:00 PM EDT Office Visit [facility] [address] [place] [address] Meri Mondragon PA-C 11/22/2024 Results Follow-Up [facility] [address] [place] [phone] Meri Mondragon PA-C 11/21/2024 2:40 PM EDT Office Visit [facility] [address] [place] [phone] Meri Mondragon PA-C 10/24/2024 11:00 AM EDT Office Visit [facility] [address] [place] [phone] Carlos Jackson DDS from Last 3 Months Immunizations Immunization Administration Dates Next Due INFLUENZA, SEASONAL, INJECTABLE 02/09/2007 PNEUMOCOCCAL CONJUGATE PCV 13 04/30/2020 PNEUMOCOCCAL POLYSACCHARIDE PPV23 (Pneumovax 23) 06/24/2021 TDAP 08/07/2015 Family History Medical History Relation Name Comments Heart Problems Brother 1 s/p major hea rt surgery Heart Problems Brother 2 s/p cardiac s tent Asthma Daughter 1 Hypertension Daughter 2 Other (See Comments) Daughter 2 Mcintosh 's disease Cancer Father colon cancer COPD Mother Other (See Comments) Mother TB and stomach cancer Relation Name Status Comments Brother 1 Alive Brother 2 Alive Daughter 1 Alive Daughter 2 Alive Father Mother Other pulmonary Other Sister Alive Social History Tobacco Use Types Packs/Day Years Used Date Smoking Tobacco: Former Cigarettes Passive Smoke Exposure: Never Smokeless Tobacco: Never Tobacco Cessation:Counseling Given: Not Answered Alcohol Use Standard Drinks/Week Comments No 0 (1 standard drink = 0.6 oz pur e alcohol) Social Connections Answer Date Recorded How often do you feel lonely or isolated from th ose around you? 1 05/20/2024 Financial Resource Strain Answer Date R ecorded Hard to pay for: Food 1 05/20/2024 Stress Answer Date Recorded Do you feel these kinds of stress these days? 1 05/20/2024 Physical Activity Answer Date Recorded Physical Activity 0 10/31/2018 Food Insecurity Answer Date Recorded Hard to pay for: Food 1 05/20/2024 Transportation Needs Answer Date Record ed Hard to pay for: Transportation 1 05/20/2024 Housing Stability Answer Date Recorded Hard to pay for: Rent/Mortgage payment 1 05/20/2024 Safety and Environment Answer Date Ricky rded Safety 0 07/22/2021 Utilities Answer Date Recorded Hard to pay for: Utilities 1 05/20 Employment Answer Date Recorded Stress 0 05/31/2021 [...] Sign Reading Time Taken Comments Blood Pressure 130/72 12/19/2024 2:06 PM EDT Pulse 62 12/19/2024 2:06 PM EDT Temperature 36.6 C (97.9 F) 12/19/2024 2:06 PM EDT Respiratory Rate 16 12/19/2024 2:06 PM EDT Oxygen Saturation 98% 12/19/2024 2:06 PM EDT Inhaled Oxygen Concentration - - Weight 72.6 kg (160 lb) 12/19/2024 2:06 PM EDT Height 160 cm (5' 3 ) 12/19/2024 2:06 PM EDT Body Mass Index 28.34 12/19/2024 2:06 PM EDT Plan of Treatment Upcoming Encounters Date Type Department Care Team (Late st Contact Info) Description 03/27/2025 11:20 AM EST Office Visit [facility] [address] [place] [address] Ankur Jimenez [address] [place] [address] Health Maintenance Due Date Last Done Comments HPV Screening 1952 CT Colonography 1997 FIT/gFOBT 1997 Fecal DNA 1997 Flexible Sigmoidoscopy 1997 Colonoscopy 08/16/2022 02/15/2022 Colorectal Cancer Screening 08/16/2022 Breast Cancer Screening (Mammogram) 12/01/2023 11/30/2022, 10/20/2022, 10/15/2021, Additional history exists Medicare Annual Wellness Visit 01/06/2024 01/05/2023 Pap + HPV 10/17/2024 08/30/2023 Lipid Screening 01/10/2025 01/11/2024, 12/12, 10/25/2021, Additional history exists Cervical Cancer Screening 02/20/2025 Po stponed from 10/17/2024 (Patient postponement) [id number] ( season) 2025 12/03/2020, 11/12/2020 Postponed from 11/11/2024 (Patient postponement) Imm-Zoster, Recombinant (1 of 2) 02/20/2025 Postponed from 2002 (Patient postponement) Depression Monitoring 03/21/2025 12/19/2024 , 09/12/2024, 06/11/2024, Additional history exists Imm-DTaP/Tdap/Td (2 - Td or Tdap) 08/06/2025 08/07/2015 Tobacco Screening 09/12/2025 09/12/2024 Dental BW 09/21/2025 09/19/2024, 02/11, 12/15/2022, Additional history exists Dental Examination 09/21/2025 09/19/2024, 1 05/06/2023, 12/15/2022, Additional history exists Dental Perio Charting 09/21/2025 09/19/2024 , 03/05/2024, 06/09/2022 Dental Prophy 09/21/2025 09/19/2024, 02/11, 12/15/2022, Additional history exists Diabetes Screening 11/21/2025 11/21/2024, 0 06/17/2024, 01/11/2024, Additional history exists Falls Prevention 12/19/2025 12/19/2024, , 08/06/2021, Additional history exists Pap Smear 08/29/2026 08/30/2023, 10/18/2012 Dental FMX/Pano 06/12/2027 06/09/2022 Imm-Influenza Discontinued 02/09/2007 Bone Density Screening Completed 2018 Hepatitis C Screening Completed 05/09/2019 Imm-Pneumococcal 50+ Completed 06/24/2021, 04/30/19 21 Colposcopy Discontinued 10/18/2023 Excision/Leep Discontinued 10/18/2023 Alcohol and Drug Screen Completed 09/13/19, 06/11/2024, 01/11/2024, Additional history exists Cervical Ablation/Cold-Knife Conization Discontinued Cervical Cryotherapy Discontinued Endometrial Biopsy Discontinued HPV Genotyping Discontinued Vaginal Pap Discontinued Vulvoscopy Discontinued Procedures Procedure Name Priority Date/Time Associated Diagnosis Comments OTHER ORDERS SCANNED DOCUMENT 12/19/2024 3:00 AM EDT OTHER ORDERS SCANNED DOCUMENT 2024 3:00 AM EDT OTHER ORDERS SCANNED DOCUMENT 11/22/2024 3:00 AM EDT COMPREHENSIVE METABOLIC PANEL Routine 11/21/2024 3:30 PM EDT Onychomycosis CASE PRESENTATION SUBS DTL & EXTENSIVE TX PLN Routine 10/24/2024 11:00 AM EDT Fracture of crown, enamel, and dentin of tooth without pulp exposure 2 LL(V) RESIN-BASED COMPOSITE - ONE SURFACE POSTERIOR Routine 10/24/2024 11:00 AM EDT Fracture of crown, enamel, and dentin of tooth without pulp exposure COMP PERIODONTAL EVALUATION - NEW/EST PATIENT Routine 09/19/2024 9:00 AM EDT Fracture of crown, enamel, and dentin of tooth without pulp exposure BITEWINGS - FOUR RADIOGRAPHIC IMAGES Routine 09/19/2024 9:00 AM EDT Fracture of crown, enamel, and dentin of tooth without pulp exposure PROPHYLAXIS - ADULT Routine 09/19/2024 9 :00 AM EDT Fracture of crown, enamel, and dentin of tooth without pulp exposure PERIODIC ORAL EVALUATION ESTABLISHED PATIENT Routine 09/19/2024 9:00 AM EDT Fracture of crown, enamel, and dentin of tooth without pulp exposure LIPID PANEL Routine 01/11/2024 10:20 AM EDT Dyslipidemia BIOPSY CERVIX SINGLE/MULT/EXCISION OF LESION SPX Routine 10/18/2023 12:00 AM EDT THINPREP IMAGING PAP, HPV MRNA E6/E7 RFLEX HPV 16,18/45 CT/NG Routine 08/30/2023 11:11 AM EDT Cervical dysplasia REFERRAL FOR MAMMOGRAM Routine 3:00 AM EDT Breast cancer screening by mammogram INTRAORAL - COMP SERIES OF RADIOGRAPHIC IMAGES Routine 06/09/2022 10:20 AM EDT Encounter for dental examination REFERRAL FOR COLONOSCOPY Routine 02/15/2022 3:00 AM EST Screening for colorectal cancer HEPATITIS C ANTIBODY Routine 05/09/2019 9:50 AM EST Need for hepatitis C screening test from Last 3 Months or Most Recently Relevant to Health Maintenance Results * OTHER ORDERS SCANNED DOCUMENT (12/19/2024 3:00 AM EDT) Only the most recent of3 resultswithin the time period is included. 12/19/2024 3:00 AM EDT Meri Mondragon PA-C SCAN OTHER ORDERS Final Resu lt * (ABNORMAL) COMPREHENSIVE METABOLIC PANEL Routine (11/21/2024 3:30 PM EDT) GLUCOSE 95 65 - 99 mg/dL 11/22/2024 6:22 AM [facility] UREA NITROGEN (BUN) 14 7 - 25 mg/dL 11/22/2024 6:22 AM [facility] CREATININE (blood) 0.54(L) 0.60 - 1.00 mg/dL 11/22/2024 6:22 AM [facility] EGFR 98 > OR = 60 mL/min/1. 73m2 11/22/2024 6:22 AM [facility] BUN/CREATININE RATIO 26(H) 6 - 22 (calc) 11/22/2024 6:22 AM [facility] SODIUM 139 135 - 146 mmol/L 11/22/2024 6:22 AM [facility] POTASSIUM 4.2 3.5 - 5.3 mmol/L 11/22/2024 6:22 AM [facility] CHLORIDE 100 98 - 110 mmol/L 11/22/2024 6:22 AM [facility] CARBON DIOXIDE 31 20 - 32 mmol/L 11/22/2024 6:22 AM [facility] CALCIUM 10.1 8.6 - 10.4 mg/dL 11/22/2024 6:22 AM [facility] PROTEIN, TOTAL 6.9 6.1 - 8.1 g/dL 11/22/2024 6:22 AM EDT [facility] ALBUMIN 4.6 3.6 - 5.1 g/dL 11/22/2024 6:22 AM EDT [facility] GLOBULIN 2.3 1.9 - 3.7 g/dL (calc) 11/22/2024 6:22 AM EDT [facility] ALBUMIN/GLOBULI N RATIO 2.0 1.0 - 2.5 (calc) 11/22/2024 6:22 AM EDT [facility] BILIRUBIN, TOTAL 0.3 0.2 - 1.2 mg/dL 11/22/2024 6:22 AM EDT [facility] ALKALINE PHOSPHATASE 233(H) 37 - 153 U/L 11/22/2024 6:22 AM EDT [facility] AST 27 10 - 35 U/L 11/22/2024 6:22 AM EDT [facility] ALT 24 6 - 29 U/L 11/22/2024 6:22 AM EDT [facility] Blood Blood / Unknown 11/21/2024 3 :30 PM EDT 11/22/2024 5:08 AM EDT Narrative [facility] - 11/22/2024 6:32 AM EDT . Fasting reference interval . us Meri Mondragon PA-C LAB - BLOOD DRAW Final Resul t [facility] [address] [address], [facility] [address] [address] * LIPID PANEL (01/11/2024 10:20 AM EDT) CHOLESTEROL, TOTAL 181 <200 mg/dL [facility] HDL CHOLESTEROL 65 > OR = 50 mg/dL [facility] TRIGLYCERIDES 85 <150 mg/dL [facility] LDL-CHOLESTEROL 98 99 mg/dL (calc) [facility] Comment: Reference range: <100 Desirable range <100 mg/dL for primary prevention; <70 mg/dL for patients with CHD or diabetic patients with > or = 2 CHD risk factors. LDL-C is now calculated using the Ole-Deluca calculation, which is a validated novel method providing better accuracy than the Friedewald equation in the estimation of LDL-C. Ole SS et al. RAS. 2013;310(19): 0986-7526 (http://education.Kanga/faq/VGT009) CHOL/HDLC RATIO 2.8 <5.0 (calc) [facility] NON-HDL CHOLESTEROL 116 <130 mg/dL (calc) [facility] Comment: For patients with diabetes plus 1 major ASCVD risk factor, treating to a non-HDL-C goal of <100 mg/dL (LDL-C of <70 mg/dL) is considered a therapeutic option. Blood Blood / Unknown 01/11/2024 1 0:20 AM EDT 01/11/2024 10:20 AM EDT Narrative Verified Person - 01/12/2024 4:21 AM EDT FASTING:NO Meri Mondragon PA-C LAB - BLOOD DRAW Final Resul t Performing Organization Address City/[facility]/ZIP Co de Phone Number Verified Person [address] [address], [employer] [address] [place] [address] * BIOPSY CERVIX SINGLE/MULT/EXCISION OF LESION SPX (10/18/2023 12:00 AM EDT) Provider [place] PROCEDURES Final Result Performing Organization Address [facility] Co de Phone Number [facility] [place] [address], * (ABNORMAL) THINPREP IMAGING PAP, HPV MRNA E6/E7 RFLEX HPV 16,18/45 CT/NG (08/30/2023 11:11 AM EDT) CHLAMYDIA TRACHOMATIS RNA, TMA NOT DETECTED NOT DETECTED [facility] NEISSERIA GONORRHOEAE RNA, TMA NOT DETECTED NOT DETECTED [facility] COMMENT [facility] CLINICAL INFORMATION See Note [facility] Comment:Routine exam LMP See Note [facility] Comment:NONE GIVEN PREV. PAP See Note [facility] Comment:NONE GIVEN PREV. BX See Note [facility] Comment:NONE GIVEN SOURCE See Note [facility] Comment:Cervix STATEMENT OF ADEQUACY See Note [facility] Comment: Satisfactory for evaluation. Endocervical/transformation zone component present. GENERAL CATEGORIZATION See Note(A) [facility] Comment:Cytology Results: Ep ithelial Cell Abnormality INTERPRETATION/RESU LT See Note(A) [employer] Comment: Atypical Squamous Cells of Undetermined Significance (ASC-US) COMMENT See Note [facility] Comment: This Pap test has been evaluated with computer assisted technology. REFRIGERATION ENGINEERING TEACHER See Note [facility] Comment: EXJ, CT(ASCP) CT Screening Location: [address] [address] PATHOLOGIST See Note [facility] Comment: Gavin Green M.D., Board Certified in Anatomic and Clinical Pathology (electronic signature) Consulting Pathologist [facility] [address] [place] [id number] COMMENT [facility] HPV MRNA E6/E7 Detected(A ) Not Detected [facility] Comment: Methodology: Associate Brand Manager-Mediated Amplification This assay detects E6/E7 viral messenger RNA (mRNA) from 14 high-risk HPV types (16,18,31,33,35,39,45,51,52,56,58,59,66,68). Cervical sources are required for HPV testing. If a vaginal source from a patient who has had a total hysterectomy with removal of cervix was submitted, please contact the testing laboratory for alternative testing options. For additional information, please refer to http://education.aka-aki networks/faq/MWW631i9 (This link if provided for information/ educational purposes only.) Swab Cervix uteri structure / Unknown 08/30/2023 11:11 AM EDT 08/31/2023 5:20 AM EDT Narrative [facility] - 09/04/2023 1:22 PM EDT EXPLANATORY NOTE: [...] test SurePath(TM) specimens have been determined by [employer]. The modifications have not been cleared or approved by the FDA. This assay has been validated pursuant to the CLIA regulations and is used for clinical purposes. For additional information, please refer to https://education.aka-aki networks/faq/BHE195 (This link is being provided for information/ educational purposes only.) Ngoc Carla DO LAB - PATHOLOGY AND CYTOLOGY A MBULATORY Final Result [facility] [address] [address], [facility] [address] [address] * REFERRAL FOR MAMMOGRAM SCREENING (10/20/2022 3:00 AM EDT) 10/20/2022 3:00 AM EDT Meri Mondragon PA-C IMG RFL MAMMO Edited Resul t - Final * (ABNORMAL) REFERRAL FOR COLONOSCOPY (02/15/2022 3:00 AM EST) 02/15/2022 3:00 AM EST us Meri Mondragon PA-C REFERRAL Edited Resul t - Final * HEPATITIS C ANTIBODY (05/09/2019 9:50 AM EST) HEPATITIS C VIRUS SCREEN NEGATIVE NEGATIVE [facility] Blood specimen (specimen) Blood / Unknown 05/09/2019 9:50 AM EST 05/09/2019 10:18 AM EST Narrative [facility] 05/09/2019 1:09 PM EST [employer], a member of [address] [address] Pinball Machine Repairer - Nikki Mojica [place] [id number] ORD# [id number] [facility] LAB - BLOOD DRAW Final Result Performing Organization Address City/[facility]/ZIP Co de Phone Number [address] [address], from Last 3 Months or Most Recently Relevant to Health Maintenance [place] Care Teams Medical Technologist Prn Relationship Specialty Start Date End Date Meri Mondragon PA-C [address] [place] [address] PCP - General FAMILY MEDICINENEVIN 08/06/21
[2024-12-28 12:03] LABS: Levetiracetam Keppra 69.2 mcg/mL (6.0-46.0)
== END 2024-12-25 10:23 | disposition home or self-care (01) ==
LOC: HO.LAB 10:22
PROVIDERS: PCP Physician Assistant; Referring Provider Physician Assistant; Visit Provider Psychiatry & Neurology Neurology
DX: G40.909 Epilepsy, unspecified, not intractable, without status epilepticus (principal); G47.33 Obstructive sleep apnea (adult) (pediatric); Z51.81 Encounter for therapeutic drug level monitoring
CPT/HCPCS: 36415; 80177; 80185; 99212